=== PATIENT | female | born 1995 | race Caucasian/White ===

== ENCOUNTER 2016-12-16 14:03 | Observation (INO) | payer MEDICAID ==
[~2016-12-16] VITALS: Ht 152.4 cm; Wt 69.4 kg
[2016-12-16] MEDS ORDERED: PNV1TABL76 PO (14:36)
== END 2016-12-16 16:12 | disposition home or self-care (01) ==
LOC: L&D 14:03
PROVIDERS: ADMIT Specialist; ATTEND Specialist
DX: O26.893 Other specified pregnancy related conditions, third trimester (principal); R10.9 Unspecified abdominal pain; Z3A.39 39 weeks gestation of pregnancy
CPT/HCPCS: 99281; G0378

== ENCOUNTER 2016-12-21 23:45 | Inpatient (IN) | payer MEDICAID ==
[~2016-12-21] VITALS: Ht 160 cm; Wt 73.9 kg
[~2016-12-21 23:45] MED LIST: PNV1TABL76 PO
[2016-12-22] MEDS ORDERED: IRON-1 PO (01:10)
[2016-12-22] MEDS ORDERED: BUTORPHANOL TARTRATE 2 MG/ML VIAL IV PRN (01:15)
[2016-12-22] MEDS ORDERED: LIDOCAINE HCL 1% 20ML VIAL (Pyxis) INJ INFIL SCH (01:15)
[2016-12-22] MEDS ORDERED: METHYLERGONOVINE MALEATE 0.2 MG/ML IM PRN (01:15)
[2016-12-22] MEDS ORDERED: NALOXONE HCL 0.4 MG/ML 1ML VIAL IM PRN (01:15)
[2016-12-22] MEDS ORDERED: AMPICILLIN 2,000 MG in SODIUM CHLORIDE 0.9% 100 ML IV SCH (02:00)
[2016-12-22] MEDS: LACTATED RINGERS 1,000 ML IV SCH ×4 (02:18→20:29)
[2016-12-22 03:18] LABS: BASOPHILS % 0.2 % (0.0-2.0); EOSINOPHILS % 0.9 % (0.0-5.0); HEMATOCRIT. 31.2 % (36.0-48.0); HEMOGLOBIN. 10.5 g/dL (12.0-16.0); LYMPHOCYTES % 14.6 % (20.0-50.0); MEAN CORPUSCULAR VOLUME 83.1 fL (81.0-99.0); MEAN PLATELET VOLUME 10.6 fl (7.4-10.4); MONOCYTES % 5.8 % (2.0-8.0); NEUTROPHILS % 78.5 % (40.0-76.0); PLATELET 193 x1000/uL (130-400); RED BLOOD CELL COUNT 3.75 mill/uL (4.2-5.4); RED CELL DISTRIBUTION WIDTH 15.1 % (11.6-14.6)
[2016-12-22 03:26] LABS: INR 0.9; PARTIAL THROMBOPLASTIN TIME 27.2 sec (23.4-31.0); PROTHROMBIN TIME 9.5 sec (9.4-11.6)
[2016-12-22 03:38] LABS: CARBON DIOXIDE 23 mEq/L (21-32); CHLORIDE 107 mEq/L (98-107)
[2016-12-22] MEDS ORDERED: FENTANYL CITRATE/PF 50MCG/ML 2ML VIAL ONE ×3 (03:54→23:05)
[2016-12-22] MEDS ORDERED: BUPIVACAINE HCL/PF 0.25% (2.5MG/ML) 10ML ONE (03:56)
[2016-12-22] MEDS ORDERED: BUPIVACAINE HCL/NS/PF EPIDURAL 100 ML EP ONE ×3 (03:57→23:05)
[2016-12-22] MEDS ORDERED: ONDANSETRON HCL 4MG/2ML VIAL IV PRN (04:45)
[2016-12-22] MEDS ORDERED: BUPIVACAINE HCL/NS/PF EPIDURAL 100 ML EP SCH (04:45)
[2016-12-22] MEDS ORDERED: DIPHENHYDRAMINE 50MG/ML VIAL IM PRN (04:45)
[2016-12-22 05:24] LABS: CLARITY URINE CLEAR (CLEAR); COLOR URINE YELLOW (YELLOW); GLUCOSE URINE NEGATIVE (NEGATIVE); KETONES URINE TRACE (NEGATIVE); LEUKOCYTE ESTERASE URINE NEGATIVE (NEGATIVE); NITRITE URINE NEGATIVE (NEGATIVE); OCCULT BLOOD URINE NEGATIVE (NEGATIVE); PH URINE 6.5 (4.5-8.0); PROTEIN URINE TRACE (NEGATIVE); SPECIFIC GRAVITY URINE 1.027 (1.005-1.030)
[2016-12-22 05:39] LABS: *AMPHETAMINES SCREEN URINE NEGATIVE (NEGATIVE); *BARBITURATES SCREEN URINE NEGATIVE (NEGATIVE); *BENZODIAZEPINES SCREEN URINE NEGATIVE (NEGATIVE); *COCAINE SCREEN URINE NEGATIVE (NEGATIVE); CANNABINOID URINE SCREEN NEGATIVE (NEGATIVE); METHADONE URINE SCREEN NEGATIVE (NEGATIVE); OPIATES URINE SCREEN NEGATIVE (NEGATIVE); PHENCYCLIDINE URINE SCREEN NEGATIVE (NEGATIVE)
[2016-12-22 06:43] LABS: HEPATITIS B SURFACE ANTIGEN NEGATIVE; RUBELLA IGG 2.6 IU/mL (4.99-10)
[2016-12-22] MEDS ORDERED: AMPICILLIN 1,000 MG in SODIUM CHLORIDE 0.9% 50 ML IV SCH (08:00)
[2016-12-22] MEDS: DEXT 5%/LR + PITOCIN 20UNITS/L 1,000 ML IV SCH (09:15)
[2016-12-22] MEDS ORDERED: LIDOCAINE HCL/PF 2% 20MG/ML 5 ML/VIAL ONE (23:12)
[2016-12-23] MEDS ORDERED: DEXT 5%/LR + PITOCIN 20UNITS/L 1,000 ML IV SCH (01:41)
[2016-12-23] MEDS ORDERED: ACETAMINOPHEN WITH CODEINE 300/30MG TABLET PO PRN ×2 (01:45)
[2016-12-23] MEDS ORDERED: GLYCERIN/WITCH HAZEL LEAF MEDICATED PAD TOP PRN (01:45)
[2016-12-23] MEDS ORDERED: BISACODYL 10MG SUPP PR PRN (01:45)
[2016-12-23] MEDS ORDERED: BENZOCAINE/LANOLIN/ALOE VERA SPRAY TOP PRN (01:45)
[2016-12-23] MEDS: DEXT 5%/LR + PITOCIN 20UNITS/L 1,000 ML IV SCH (02:31)
[2016-12-23 04:15] VITALS: BP 111/64
[2016-12-23 04:45] VITALS: BP 116/57
[2016-12-23 05:15] VITALS: BP 112/76
[2016-12-23] MEDS: IBUPROFEN 400MG TABLET PO PRN (06:02)
[2016-12-23 07:31] VITALS: BP 96/62
[2016-12-23] MEDS: MAGNESIUM/ALUMINUM HYDROXIDE/SIMETHICONE 30ML UDC PO SCH ×4 (08:24→21:02)
[2016-12-23] MEDS: SIMETHICONE 80MG TABLET CHEW PO SCH ×4 (08:25→21:02)
[2016-12-23] MEDS: PRENATAL VIT/FE FUMARATE/FA TABLET PO SCH (08:25)
[2016-12-23 15:50] VITALS: BP 98/64
[2016-12-23 19:40] VITALS: BP 116/85
[2016-12-23] MEDS: DOCUSATE SODIUM 100MG CAPSULE PO SCH (21:01)
[2016-12-24 07:26] LABS: BASOPHILS % 0.4 % (0.0-2.0); EOSINOPHILS % 2.6 % (0.0-5.0); HEMATOCRIT. 29.9 % (36.0-48.0); LYMPHOCYTES % 13.8 % (20.0-50.0); MEAN CORPUSCULAR VOLUME 83.3 fL (81.0-99.0); MONOCYTES % 6.2 % (2.0-8.0); PLATELET 171 x1000/uL (130-400); RED BLOOD CELL COUNT 3.59 mill/uL (4.2-5.4); RED CELL DISTRIBUTION WIDTH 15.2 % (11.6-14.6)
[2016-12-24 07:44] VITALS: BP 106/68
[2016-12-24] MEDS: MAGNESIUM/ALUMINUM HYDROXIDE/SIMETHICONE 30ML UDC PO SCH ×4 (07:57→23:45)
[2016-12-24] MEDS: PRENATAL VIT/FE FUMARATE/FA TABLET PO SCH (07:59)
[2016-12-24] MEDS: FERROUS SULFATE 325MG TABLET PO SCH ×3 (07:59→17:35)
[2016-12-24] MEDS: SIMETHICONE 80MG TABLET CHEW PO SCH ×4 (07:59→23:45)
[2016-12-24 16:11] VITALS: BP 107/79
[2016-12-24 19:20] VITALS: BP 110/68
[2016-12-24 23:40] VITALS: BP 112/69
[2016-12-24] MEDS: DOCUSATE SODIUM 100MG CAPSULE PO SCH (23:46)
[2016-12-24] MEDS: IBUPROFEN 400MG TABLET PO PRN (23:47)
[2016-12-25 08:00] VITALS: BP 101/81
[2016-12-25] MEDS ORDERED: TETANUS, DIPHTHERIA, PERTUSSIS VAC/PF 0.5ML (>7YR OLD) IM ONE (10:00)
== END 2016-12-25 15:00 | disposition left against medical advice (07) | DRG 560 ==
LOC: OBSVTOIN 23:45 → L&D 23:45 → 7EST PP/OB 12-23 03:57
PROVIDERS: ADMIT Obstetrics & Gynecology; ATTEND Obstetrics & Gynecology
PROC: 3E0S3CZ (ICD-10-PCS; 2016-12-23)
PROC: 00HU33Z Insertion of Infusion Device into Spinal Canal, Percutaneous Approach (ICD-10-PCS; 2016-12-23)
PROC: 10E0XZZ Delivery of Products of Conception, External Approach (ICD-10-PCS; principal; 2016-12-23 01:21)
DX: O48.0 Post-term pregnancy (principal); O77.0 Labor and delivery complicated by meconium in amniotic fluid; O69.81X0 Labor and delivery complicated by cord around neck, without compression, not applicable or unspecified; Z3A.39 39 weeks gestation of pregnancy; Z37.0 Single live birth
CPT/HCPCS: 36415; 80053; 80305; 81001; 85025; 85610; 85730; 86592; 86703; 86762; 86850; 86900; 87340; G0378; J0290; J2310; J2590; J3010; J3490; J7030; J7050; J7120; A4315